=== PATIENT | male | born 1945 ===

== ENCOUNTER → 2024-06-06 11:36 | Outpatient (REF) | payer OTHER, SELFPAY ==
[2024-06-06 14:26] LABS: Hematocrit 44.6 % (39.0-52.0); Hemoglobin 14.4 g/dL (13.0-18.0); Mean Corp Hgb Conc. 32.3 g/dL (33.0-37.0); Mean Corpuscular Hgb 29.1 pg (27.0-31.0); Mean Corpuscular Volume 90.1 fL (80.0-94.0); Mean Platelet Volume 12.2 fL (7.4-10.4); Platelet Count 176 10^3/uL (130-400); Red Blood Cell Count 4.95 10^6/uL (4.70-6.10); Red Cell Dist. Width 13.5 % (11.5-14.5); White Blood Cell Count 5.9 10^3/uL (4.8-10.8)
[2024-06-06 14:49] LABS: ALT (SGPT) 39 U/L (0-50); AST (SGOT) 38 U/L (17-59); Albumin 4.7 g/dl (3.5-5.0); Alkaline Phosphatase 61 U/L (38-126); Blood Urea Nitrogen 15 mg/dl (9-20); Calcium 9.3 mg/dl (8.4-10.2); Carbon Dioxide 28 mmol/L (22-30); Chloride 99 mmol/L (98-107); Glucose 130 mg/dl (70-99); HDL Cholesterol 65 mg/dl; LDL Cholesterol, Calculated 63 mg/dl; Magnesium 2.2 mg/dl (1.6-2.3); Potassium 4.7 mmol/L (3.5-5.1); Sodium 136 mmol/L (135-145); Total Bilirubin 0.8 mg/dl (0.2-1.3); Total Cholesterol 159 mg/dl (50-199); Total Protein 7.2 g/dl (6.3-8.2); Triglyceride 159 mg/dl (10-149); Very Low Density Lipoprotein 31 mg/dl (0-30); eGFR > 60.00
[2024-06-06 15:19] LABS: TSH 2.02 uIU/ml (0.47-4.68)
[2024-06-07 10:02] LABS: Glycohemoglobin (HgbA1c) 6.2 % (4.0-5.6)
== END ==
LOC: OLABN 11:36
PROVIDERS: ATTENDING PHYSICIAN Student in an Organized Health Care Education/Training Program
DX: I10 Essential (primary) hypertension (principal); E03.9 Hypothyroidism, unspecified
CPT/HCPCS: 36415; 80053; 80061; 83036; 83735; 84443; 85027

== ENCOUNTER → 2024-07-04 15:45 | Outpatient (REF) | payer MEDICARE, SELFPAY ==
[2024-07-04 16:50] LABS: Urine Albumin Negative (Neg - Trace); Urine Bilirubin Negative (Negative); Urine Character Clear (Clear); Urine Color Yellow; Urine Glucose Negative (Negative); Urine Ketone Negative (Negative); Urine Leukocyte Negative (Negative); Urine Nitrite Negative (Negative); Urine Occult Blood Negative (Negative); Urine Specific Gravity 1.015 (<1.030); Urine Urobilinogen Negative (Neg - 1+); Urine pH 6.5 (5.0-9.0)
== END ==
LOC: OLABN 15:45
PROVIDERS: ATTENDING PHYSICIAN Student in an Organized Health Care Education/Training Program
DX: R35.0 Frequency of micturition (principal)
CPT/HCPCS: 81003; 87086

== ENCOUNTER → 2024-07-09 10:40 | Outpatient (REF) | payer MEDICARE, SELFPAY ==
[2024-07-09 12:10] LABS: % Basophils 1.8 % (0-2); % Eosinophils 9.1 % (0-6); % Immature Granulocytes 0.2 % (0-0.5); % Lymphocytes 29.6 % (20.5-51.1); % Monocytes 14.3 % (1.7-9.3); Absolute Basophils 0.1 10^3/uL (0-0.2); Absolute Eosinophils 0.6 10^3/uL (0-0.7); Absolute Lymphocytes 1.8 10^3/uL (1.2-3.4); Absolute Monocytes 0.9 10^3/uL (0.1-0.6); Absolute Neutrophils 2.8 10^3/uL (1.4-6.5); Hematocrit 41.3 % (39.0-52.0); Hemoglobin 13.2 g/dL (13.0-18.0); Mean Corpuscular Hgb 29.3 pg (27.0-31.0); Mean Corpuscular Volume 91.6 fL (80.0-94.0); Mean Platelet Volume 11.9 fL (7.4-10.4); Nucleated Red Blood Cells % 0 % (-); Platelet Count 146 10^3/uL (130-400); Red Blood Cell Count 4.51 10^6/uL (4.70-6.10); Red Cell Dist. Width 13.3 % (11.5-14.5); White Blood Cell Count 6.1 10^3/uL (4.8-10.8)
[2024-07-09 12:17] LABS: ALT (SGPT) 26 U/L (0-50); AST (SGOT) 31 U/L (17-59); Albumin 4.1 g/dl (3.5-5.0); Alkaline Phosphatase 57 U/L (38-126); Blood Urea Nitrogen 18 mg/dl (9-20); Calcium 8.8 mg/dl (8.4-10.2); Carbon Dioxide 31 mmol/L (22-30); Chloride 101 mmol/L (98-107); Glucose 93 mg/dl (70-99); Potassium 5.1 mmol/L (3.5-5.1); Sodium 138 mmol/L (135-145); Total Bilirubin 0.5 mg/dl (0.2-1.3); Total Protein 6.4 g/dl (6.3-8.2); eGFR > 60.00
[2024-07-09 12:33] LABS: Free T4 0.91 ng/dl (0.78-2.19)
[2024-07-09 12:47] LABS: TSH 1.14 uIU/ml (0.47-4.68)
== END ==
LOC: OLABN 10:40
PROVIDERS: ATTENDING PHYSICIAN Student in an Organized Health Care Education/Training Program
DX: F41.9 Anxiety disorder, unspecified (principal); F32.89 Other specified depressive episodes; I10 Essential (primary) hypertension; R41.82 Altered mental status, unspecified
CPT/HCPCS: 36415; 80053; 84439; 84443; 85025

== ENCOUNTER 2024-08-24 17:13 | Emergency (ER) | payer MEDICARE, SELFPAY ==
[2024-08-24 17:15] VITALS: BP 144/81
[2024-08-24 17:32] LABS: % Basophils 1.6 % (0-2); % Eosinophils 13.4 % (0-6); % Immature Granulocytes 0.2 % (0-0.5); % Lymphocytes 26.8 % (20.5-51.1); % Monocytes 9.3 % (1.7-9.3); % Neutrophils 48.7 % (42.2-75.2); Absolute Basophils 0.1 10^3/uL (0-0.2); Absolute Eosinophils 0.8 10^3/uL (0-0.7); Absolute Lymphocytes 1.7 10^3/uL (1.2-3.4); Absolute Monocytes 0.6 10^3/uL (0.1-0.6); Absolute Neutrophils 3.1 10^3/uL (1.4-6.5); Hematocrit 38.3 % (39.0-52.0); Hemoglobin 12.8 g/dL (13.0-18.0); Mean Corp Hgb Conc. 33.4 g/dL (33.0-37.0); Mean Corpuscular Hgb 29.8 pg (27.0-31.0); Mean Corpuscular Volume 89.1 fL (80.0-94.0); Mean Platelet Volume 9.5 fL (7.4-10.4); Nucleated Red Blood Cells % 0 % (-); Platelet Count 149 10^3/uL (130-400); Red Cell Dist. Width 13.2 % (11.5-14.5); White Blood Cell Count 6.3 10^3/uL (4.8-10.8)
[2024-08-24 17:42] LABS: ALT (SGPT) 24 U/L (0-50); AST (SGOT) 26 U/L (17-59); Albumin 4.1 g/dl (3.5-5.0); Alkaline Phosphatase 63 U/L (38-126); Blood Urea Nitrogen 16 mg/dl (9-20); Calcium 9.2 mg/dl (8.4-10.2); Carbon Dioxide 28 mmol/L (22-30); Chloride 103 mmol/L (98-107); Glucose 133 mg/dl (70-99); Potassium 4.1 mmol/L (3.5-5.1); Sodium 137 mmol/L (135-145); Total Bilirubin 0.5 mg/dl (0.2-1.3); Total Protein 6.6 g/dl (6.3-8.2); eGFR > 60.00
--- NOTE | 2024-08-24 18:16 | ED.GENMED ---
History of Present Illness
General
Chief Complaint: Crisis Evaluation
Source: family and ambulance crew
Time Seen by Provider: 08/24/24 18:06
History of Present Illness
History of Present Illness:
79-year-old male with past medical history of Alzheimer's dementia, hypertension, hyperlipidemia, cpq-xhzksaa-khrtfrjyl diabetes, CAD presenting to the emergency department for evaluation from [facility] after he was reportedly at sib with
staff and other residents at the facility today. Staff concerned that patient could have possible infection and decided to send him to the ER for further evaluation. At time of my exam patient is calm, cooperative and in no acute distress and
denying any symptoms at this time although it is noted he is pleasantly demented. Patient does not have any family present with him at the ER today.
Past History
Past History
ED Past Medical History: CAD, GERD, HTN, Hypercholesterolemia, NIDDM, Other (BPH) and Other (Dementia)
ED Past Surgical History: None
Social History
Tobacco: Non-smoker
Alcohol: None
Drug: None
Living: half-way
Review of Systems
Review of Systems
All Other Systems: ROS reviewed and negative except as documented in HPI and ROS
Phy Exam
Physical Exam
Physical Exam:
GENERAL: Alert , in no apparent distress, sitting in chair, pleasant
EYE: conjunctiva clear
NECK: Supple, no significant adenopathy.
ENT: o/p clr, mmm.
CARDIAC: Regular rate and rhythm
LUNGS: Clear breath sounds bilaterally, no acute respiratory distress, no wheezes/rales/rhonchi
NEUROLOGICAL: Alert and oriented to self but not place nor time, ambulates with steady gait
SKIN: Warm and dry, skin intact.
MUSCULOSKELETAL: well perfused.
PSYCH: Pleasantly demented and will attempt to answer questions however does seem confused.
Scores
Heart Failure Risk
Heart Failure Risk Score: Not Applicable
Heart Score for Chest Pain Patients
STEMI patient?: Not applicable
Withdrawal Assessment of Alcohol
Withdrawal Assessment Completed?: Not applicable
Course
Orders/Labs/Results
Orders:
Orders
08/24/24 17:22
CBC/With Diff [Complete Blood Count/With Diff] Urgent
CMP [Comprehensive Metabolic Panel] Urgent
Abnormal Lab Results
08/24/24
17:22
RBC 4.30 L 10^6/uL
(4.70-6.10)
Hgb 12.8 L g/dL
(13.0-18.0)
Hct 38.3 L %
(39.0-52.0)
Absolute Eos (auto) 0.8 H 10^3/uL
(0-0.7)
Eosinophils % 13.4 H %
(0-6)
Glucose 133 H mg/dl
(70-99)
08/24/24 17:22
08/24/24 17:22
Vital Signs
Initial and Last Documented VS:
Initial Vital Signs
Temp Pulse Resp BP Pulse Ox
98.0 F 67 14 144/81 98
08/24/24 17:15 08/24/24 17:15 08/24/24 17:15 08/24/24 17:15 08/24/24 17:15
Last Documented Vital Signs
Temp Pulse Resp BP Pulse Ox
98.0 F 67 14 144/81 98
08/24/24 17:15 08/24/24 17:15 08/24/24 17:15 08/24/24 17:15 08/24/24 17:15
MDM/Problems Addressed
Differential Diagnosis Includes:
Dementia, considering UTI, not displaying any symptoms of respiratory illness or intracranial bleeding/acute neurologic complication
MDM/Problems Addressed:
79-year-old male presenting to the ER for evaluation of reportedly increased aggressive behavior at his half-way. Patient is calm and cooperative here, no acute distress. I discussed case with patient's daughter via telephone and she is in
agreement with our treatment plan here. She was notified patient's labs were within normal limits, attempting to get urine however we have been unsuccessful thus far as patient has missed the urine cup twice since attempting to go to the bathroom.
I reached out to [facility] to discuss the case with them however I was unable to reach nursing staff and unable to leave a message. Will attempt to contact them back via telephone prior to patient leaving the emergency room.
Chronic conditions affecting care: Neurological disorder (Dementia)
Acute Exacerbation and/or Progression of Chronic Illness: Neurological disorder (Dementia)
*Pulse Oximetry
Patient hypoxic: no
*Critical Care Note
Total Time (30-74mins, 75-104mins- exclusive of procedures): Not Applicable
Data Reviewed
Review of Other/Old Records Reveals: Labs and Records
Source: records and ambulance crew
Patient Management
Social determinants of health affecting care: Living situation and Strong social support
Discussion with other providers: snf staff
Escalation/DeEscalation of care consider admission/obs:
I spoke to the diet supervisor at [facility] and discussed workup here in the ER as well as patient's current disposition. Patient remains calm and cooperative here and in no acute distress. He is afebrile and has no leukocytosis. My suspicion
for urinary tract infection in this male patient, who is otherwise calm and cooperative currently, is quite low. They have medical at their facility who would be able to obtain a urine as needed. Patient may need medication adjustment or increased
as needed medication for agitation. Patient will be transported back to [facility] via EMS/transport service.
ED Attending Note
-
Portions of this chart may have been created with voice recognition software.� Occasional wrong word or��sound alike� substitutions may have occurred due to the inherent limitations of voice recognition software.
Discharge Plan
Departure
Patient Disposition: Correction/SNF
Date of Disposition: 08/24/24
Time of Disposition: 18:16
Patient with high blood pressure during this ER visit?: Yes
Discharge Problem:
Agitation due to dementia
Instructions: Dementia - ED discharge instructions
Referrals:
Richmond Patel DO [Family Provider] -
Interventions
Interventions:
*Risk Screen - Suicide Last Done: 08/24/24 17:15
*General Assessment Last Done: 08/24/24 17:15
*Neglect/Abuse Screening Last Done: 08/24/24 17:15
*ED- Fall Risk Assessment Last Done: 08/24/24 17:15
*Nursing Disposition Last Done: 08/24/24 18:44
ED-Psychological Assessment Last Done: 08/24/24 17:26
Discharge Date and Time
Discharge Date/Time: 08/24/24 18:45
Print Language: [email or web address]
== END 2024-08-24 18:45 ==
LOC: EMR 17:13
PROVIDERS: EMERGENCY PHYSICIAN Emergency Medicine; FAMILY PHYSICIAN Student in an Organized Health Care Education/Training Program
DX: G30.9 Alzheimer's disease, unspecified (principal); F02.811 Dementia in other diseases classified elsewhere, unspecified severity, with agitation; E11.9 Type 2 diabetes mellitus without complications; E78.00 Pure hypercholesterolemia, unspecified; I10 Essential (primary) hypertension; I25.10 Atherosclerotic heart disease of native coronary artery without angina pectoris; K21.9 Gastro-esophageal reflux disease without esophagitis; N40.0 Benign prostatic hyperplasia without lower urinary tract symptoms
CPT/HCPCS: 99283; 80053; 85025

== ENCOUNTER → 2024-09-23 09:49 | Outpatient (REF) | payer OTHER, MEDICARE, SELFPAY ==
[2024-09-23 10:44] LABS: ALT (SGPT) 27 U/L (0-50); AST (SGOT) 30 U/L (17-59); Albumin 3.3 g/dl (3.5-5.0); Alkaline Phosphatase 57 U/L (38-126); Blood Urea Nitrogen 22 mg/dl (9-20); Calcium 8.7 mg/dl (8.4-10.2); Carbon Dioxide 31 mmol/L (22-30); Chloride 106 mmol/L (98-107); Glucose 97 mg/dl (70-99); Potassium 4.3 mmol/L (3.5-5.1); Sodium 143 mmol/L (135-145); Total Bilirubin 0.5 mg/dl (0.2-1.3); Total Protein 5.7 g/dl (6.3-8.2); eGFR > 60.00
[2024-09-23 10:46] LABS: Depakane 103.7 ug/ml (50.0-120.0)
[2024-09-23 11:19] LABS: Hematocrit 41.9 % (39.0-52.0); Hemoglobin 13.3 g/dL (13.0-18.0); Mean Corp Hgb Conc. 31.7 g/dL (33.0-37.0); Mean Corpuscular Hgb 29.2 pg (27.0-31.0); Mean Corpuscular Volume 92.1 fL (80.0-94.0); Red Blood Cell Count 4.55 10^6/uL (4.70-6.10); Red Cell Dist. Width 13.5 % (11.5-14.5); White Blood Cell Count 4.8 10^3/uL (4.8-10.8)
[2024-09-23 12:34] LABS: Mean Platelet Volume 11.9 fL (7.4-10.4)
[2024-09-23 12:35] LABS: Platelet Count 95 10^3/uL (130-400)
== END ==
LOC: OLABN 09:49
PROVIDERS: ATTENDING PHYSICIAN Student in an Organized Health Care Education/Training Program
DX: Z51.81 Encounter for therapeutic drug level monitoring (principal)
CPT/HCPCS: 36415; 80053; 80164; 85027

== ENCOUNTER → 2024-09-30 09:51 | Outpatient (REF) | payer OTHER, MEDICARE, SELFPAY ==
[2024-09-30 12:03] LABS: Glycohemoglobin (HgbA1c) 6.4 % (4.0-5.6); HDL Cholesterol 50 mg/dl; LDL Cholesterol, Calculated 51 mg/dl; Total Cholesterol 119 mg/dl (50-199); Triglyceride 90 mg/dl (10-149); Very Low Density Lipoprotein 18 mg/dl (0-30)
== END ==
LOC: OLABN 09:51
PROVIDERS: ATTENDING PHYSICIAN Student in an Organized Health Care Education/Training Program
DX: I10 Essential (primary) hypertension (principal)
CPT/HCPCS: 36415; 80061; 83036

== ENCOUNTER → 2024-10-11 11:47 | Outpatient (REF) | payer MEDICARE, SELFPAY ==
[2024-10-11 12:41] LABS: ALT (SGPT) 28 U/L (0-50); AST (SGOT) 28 U/L (17-59); Albumin 3.3 g/dl (3.5-5.0); Alkaline Phosphatase 54 U/L (38-126); Blood Urea Nitrogen 19 mg/dl (9-20); Calcium 8.6 mg/dl (8.4-10.2); Carbon Dioxide 33 mmol/L (22-30); Chloride 99 mmol/L (98-107); Glucose 100 mg/dl (70-99); Potassium 4.5 mmol/L (3.5-5.1); Sodium 140 mmol/L (135-145); Total Bilirubin 0.4 mg/dl (0.2-1.3); Total Protein 5.8 g/dl (6.3-8.2); eGFR > 60.00
[2024-10-11 12:42] LABS: Ammonia < 9 umol/L (9-30)
[2024-10-11 12:50] LABS: Depakane 62.5 ug/ml (50.0-120.0)
== END ==
LOC: OLABN 11:47
PROVIDERS: ATTENDING PHYSICIAN Student in an Organized Health Care Education/Training Program
DX: Z51.81 Encounter for therapeutic drug level monitoring (principal)
CPT/HCPCS: 36415; 80053; 80164; 82140

== ENCOUNTER → 2025-01-28 11:16 | Outpatient (REF) | payer MEDICARE, SELFPAY ==
[2025-01-28 11:50] LABS: Urine Character Clear (Clear)
[2025-01-28 12:09] LABS: Urine Red Blood Cell 0-2 /HPF (0-2); Urine Squamous Cell 0-2 /LPF (Few)
== END ==
LOC: OLABN 11:16
PROVIDERS: ATTENDING PHYSICIAN Student in an Organized Health Care Education/Training Program
DX: R35.0 Frequency of micturition (principal)
CPT/HCPCS: 81003; 81015; 87086

== ENCOUNTER → 2025-01-29 09:40 | Outpatient (REF) | payer MEDICARE, OTHER, SELFPAY ==
[2025-01-29 10:41] LABS: Hematocrit 41.7 % (39.0-52.0); Hemoglobin 13.4 g/dL (13.0-18.0); Mean Corp Hgb Conc. 32.1 g/dL (33.0-37.0); Mean Corpuscular Volume 94.1 fL (80.0-94.0); Nucleated Red Blood Cells % 0 % (-); Platelet Count 121 10^3/uL (130-400); Red Cell Dist. Width 12.7 % (11.5-14.5)
[2025-01-29 10:53] LABS: ALT (SGPT) 22 U/L (0-50); AST (SGOT) 34 U/L (17-59); Albumin 4.0 g/dl (3.5-5.0); Alkaline Phosphatase 53 U/L (38-126); Blood Urea Nitrogen 27 mg/dl (9-20); Calcium 9.2 mg/dl (8.4-10.2); Carbon Dioxide 31 mmol/L (22-30); Chloride 107 mmol/L (98-107); Glucose 99 mg/dl (70-99); Magnesium 2.3 mg/dl (1.6-2.3); Potassium 4.2 mmol/L (3.5-5.1); Sodium 145 mmol/L (135-145); Total Protein 6.8 g/dl (6.3-8.2); eGFR > 60.00
== END ==
LOC: OLABN 09:40
PROVIDERS: ATTENDING PHYSICIAN Student in an Organized Health Care Education/Training Program
DX: I10 Essential (primary) hypertension (principal)
CPT/HCPCS: 36415; 80053; 83735; 85025

== ENCOUNTER → 2025-02-07 10:26 | Outpatient (REF) | payer MEDICARE, OTHER, SELFPAY ==
[2025-02-07 11:01] LABS: Urine Character Clear (Clear)
[2025-02-07 11:28] LABS: Urine Squamous Cell 0-2 /LPF (Few)
== END ==
LOC: OLABN 10:26
PROVIDERS: ATTENDING PHYSICIAN Student in an Organized Health Care Education/Training Program
DX: R33.9 Retention of urine, unspecified (principal)
CPT/HCPCS: 81003; 81015; 87086; 87147; 87186

== ENCOUNTER → 2025-02-14 10:22 | Outpatient (REF) | payer MEDICARE, OTHER, SELFPAY ==
[2025-02-14 11:09] LABS: Blood Urea Nitrogen 22 mg/dl (9-20); Calcium 8.6 mg/dl (8.4-10.2); Carbon Dioxide 30 mmol/L (22-30); Chloride 99 mmol/L (98-107); Glucose 111 mg/dl (70-99); Potassium 3.9 mmol/L (3.5-5.1); Sodium 134 mmol/L (135-145); eGFR > 60.00
== END ==
LOC: OLABN 10:22
PROVIDERS: ATTENDING PHYSICIAN Student in an Organized Health Care Education/Training Program
DX: R53.1 Weakness (principal)
CPT/HCPCS: 36415; 80048